=== PATIENT | male | born 1940 | race Caucasian/White ===

== ENCOUNTER 2021-07-12 08:01 | Inpatient (IN) | payer OTHER ==
[~2021-07-12] VITALS: Ht 170.2 cm; Wt 90.7 kg
[~2021-07-12 08:01] MED LIST: ACE3T PO; ATOR10TA PO; CAR3125T PO; LIDO5DIS21 TOP
[2021-07-12] MEDS ORDERED: ceFAZolin 1GM/50ML 100 ML IV ONE ×3 (08:38→23:59)
[2021-07-12] MEDS ORDERED: MIDAZOLAM HCL 2MG/2ML 2ml VIAL (1mg/ml) ONE ×2 (10:32→12:13)
[2021-07-12] MEDS ORDERED: PROPOFOL 10 MG/ML 20 ML IV ONE (10:32)
[2021-07-12] MEDS ORDERED: MEPERIDINE HCL (25 MG/ML) 1ML VIAL ONE (10:32)
[2021-07-12] MEDS ORDERED: DexAMETHasone SOD PHOS 10MG/1ML VIAL INJ ONE (10:32)
[2021-07-12] MEDS ORDERED: fentaNYL CITRATE 100 MCG/2 ML VL ONE (10:32)
[2021-07-12] MEDS ORDERED: TRANEXAMIC ACID 20 ML ONE (10:52)
[2021-07-12] MEDS ORDERED: TETRACAINE 1% INJ 2 ML VIAL IJ ONE (10:52)
[2021-07-12] MEDS ORDERED: VANCOMYCIN HCL 1000 MG VL ONE (10:53)
[2021-07-12] MEDS ORDERED: oxyCODONE HCL 5MG TAB PO PRN ×2 (11:30)
[2021-07-12] MEDS ORDERED: ONDANSETRON HCL 4 MG/2 ML VIAL IV PRN ×3 (11:30→15:45)
[2021-07-12] MEDS ORDERED: ePHEDrine SULFATE 50 MG/ML AMP IV PRN (12:00)
[2021-07-12] MEDS ORDERED: HYDROmorphone HCL 2 MG/ML VL IV PRN (12:00)
[2021-07-12] MEDS ORDERED: MIDAZOLAM HCL 2MG/2ML 2ml VIAL (1mg/ml) IV PRN (12:00)
[2021-07-12] MEDS ORDERED: LABETALOL HCL 5 MG/ML 4ML SYRINGE IV PRN (12:00)
[2021-07-12] MEDS ORDERED: MORPHINE SULFATE 4 MG/ML SYR/VIAL IV PRN (12:00)
[2021-07-12] MEDS: HYDROmorphone HCL 2 MG/ML VL IV PRN ×2 (14:15→14:48)
[2021-07-12] MEDS: SODIUM CHLORIDE 0.9% 1,000 ML IV SCH ×3 (15:00→19:30)
[2021-07-12] MEDS: ceFAZolin 2 GM in D5W 5% 100 ML IV SCH (15:46)
[2021-07-12 17:00] VITALS: BP 173/88
[2021-07-12 17:23] LABS: Basophils # (auto) 0 10 ^3/uL (0-0.2); Eosinophils # (auto) 0 10 ^3/uL (0-0.8); Eosinophils % (auto) 0.1 % (0.0-7.0); Lymphocytes # (auto) 1.1 10 ^3/uL (0.4-5.4); Mean Corpuscular Hemoglobin 34.8 pg (28.0-32.0); Monocytes # (auto) 0.2 10 ^3/uL (0-1.3); Neutrophils # (auto) 10.9 10 ^3/uL (1.6-8.6); Neutrophils % (auto) 89.2 % (37.0-80.0); White Blood Cell 12.2 10^3/uL (4.4-10.8)
[2021-07-12 17:25] LABS: Hematocrit 40.2 % (41.0-53.0); Hemoglobin 13.8 g/dL (13.5-17.5); Lymphocytes % (auto) 8.8 % (10.0-50.0); Mean Corpuscular Hgb Conc. 34.4 g/dL (32.0-36.0); Mean Corpuscular Volume 101.1 fL (80.0-100.0); Monocytes % (auto) 1.9 % (0.0-12.0); Red Blood Cells 3.97 10^6/uL (4.5-5.90); Red Cell Distribution Width 13.5 % (11.8-14.3)
[2021-07-12] MEDS: KETOROLAC TROMETH 30 MG/ML 1ML VIAL IV SCH ×2 (17:38→23:45)
[2021-07-12] MEDS: ACETAMINOPHEN 325 MG TAB PO SCH ×2 (17:38→23:46)
[2021-07-12 17:40] LABS: BUN/Creatinine Ratio 13.8; Calcium 9.1 mg/dL (8.5-10.1); Potassium 4.8 mmol/L (3.5-5.1)
[2021-07-12 17:42] VITALS: BP 164/78
[2021-07-12 22:00] VITALS: BP 172/97
[2021-07-12] MEDS ORDERED: ATORVASTATIN 20 MG TAB PO SCH (22:00)
[2021-07-12] MEDS: CARVEDILOL 3.125 MG TAB PO SCH (22:45)
[2021-07-13] MEDS: ceFAZolin 2 GM in D5W 5% 100 ML IV SCH (00:06)
[2021-07-13] MEDS: SODIUM CHLORIDE 0.9% 1,000 ML IV SCH ×2 (03:55→11:30)
[2021-07-13 05:00] VITALS: BP 160/99
[2021-07-13] MEDS: ACETAMINOPHEN 325 MG TAB PO SCH ×2 (06:35→13:04)
[2021-07-13] MEDS: KETOROLAC TROMETH 30 MG/ML 1ML VIAL IV SCH ×2 (06:35→13:04)
[2021-07-13 09:16] VITALS: BP 162/77
[2021-07-13] MEDS: CARVEDILOL 3.125 MG TAB PO SCH (09:38)
[2021-07-13] MEDS ORDERED: APIXABAN 2.5 MG TAB PO SCH ×2 (12:15→22:00)
[2021-07-13] MEDS ORDERED: hydrALAZINE HCL 20 MG/ML VL IV PRN (12:15)
[2021-07-13 12:58] VITALS: BP 159/89
[2021-07-13 13:17] LABS: Basophils # (auto) 0 10 ^3/uL (0-0.2); Eosinophils # (auto) 0 10 ^3/uL (0-0.8); Hemoglobin 12.9 g/dL (13.5-17.5); Lymphocytes # (auto) 1.6 10 ^3/uL (0.4-5.4); Monocytes # (auto) 1.1 10 ^3/uL (0-1.3)
[2021-07-13 13:19] LABS: Hematocrit 36.9 % (41.0-53.0); Lymphocytes % (auto) 9.6 % (10.0-50.0); Mean Corpuscular Hemoglobin 35.8 pg (28.0-32.0); Mean Corpuscular Volume 102.1 fL (80.0-100.0); Monocytes % (auto) 6.3 % (0.0-12.0); Neutrophils # (auto) 14.2 10 ^3/uL (1.6-8.6); Neutrophils % (auto) 84.1 % (37.0-80.0); Red Blood Cells 3.62 10^6/uL (4.5-5.90); Red Cell Distribution Width 13.7 % (11.8-14.3); White Blood Cell 16.9 10^3/uL (4.4-10.8)
[2021-07-13 13:33] LABS: BUN/Creatinine Ratio 18.6; Calcium 8.6 mg/dL (8.5-10.1); Potassium 3.9 mmol/L (3.5-5.1)
[2021-07-13 13:43] VITALS: BP 155/89
== END 2021-07-13 14:20 | disposition home or self-care (01) | DRG 470 ==
LOC: SUR 08:01 → OVERFLOW 11:28 → CENTRAL 16:19
PROVIDERS: ADMIT Orthopaedic Surgery; ATTEND Orthopaedic Surgery
PROC: 0SR906Z Replacement of Right Hip Joint with Oxidized Zirconium on Polyethylene Synthetic Substitute, Open Approach (ICD-10-PCS; principal; 2021-07-12 11:15)
DX: M16.11 Unilateral primary osteoarthritis, right hip (principal); I10 Essential (primary) hypertension; Z20.822 Contact with and (suspected) exposure to COVID-19
CPT/HCPCS: 36415; 72170; 73502; 80048; 85025; 86850; 86900; 86901; 97163; G0378; J0690; J1100; J1885; J2250; J2704; J7060